=== PATIENT | male | born 1995 | race African-American/Black ===

== ENCOUNTER 2019-11-23 11:27 | Emergency (ER) | payer BC, SELFPAY ==
[2019-11-23 12:03] VITALS: BP 114/77; PULSE 80; RESP 16; TEMP 36.2; O2SAT 99
--- NOTE | 2019-11-23 12:25 | ED.MALEGU ---
HPI - Male Genitourinary General Chief complaint: Urogenital-Male Stated complaint: POSSIBLE UTI Time Seen by Provider: 11/23/19 12:11 Source: patient and RN notes reviewed Mode of arrival: ambulatory Limitations: no limitations History of Present Illness HPI Narrative: Presents today requesting STD testing. Reports a clear penile discharge since yesterday. Denies any dysuria, hematuria, abdominal pain, penile pain or swelling, testicular or scrotal pain or swelling. History of chlamydia x2 in the past. Last episode of unprotected vaginal intercourse was November 06. Patient also has unprotected anal intercourse. Female partners. Complaint: penile discharge Related Data Home Medications Medication Instructions Recorded Confirmed No Home Medications 11/23/19 11/23/19 Allergies Allergy/AdvReac Type Severity Reaction Status Date / Time No Known Allergies Allergy Verified 11/23/19 12:02 Review of Systems Review of Systems: Narrative: CONSTITUTIONAL: Denies body aches, fever, chills, or sweats. EYES: Denies visual changes, redness, or discharge. ENT: Denies rhinorrhea, congestion, sore throat, or otalgia. CARDIOVASCULAR: Denies chest pain, palpitations, or edema. RESPIRATORY: Denies cough or dyspnea. GASTROINTESTINAL: Denies abdominal pain, nausea, vomiting, or diarrhea. GENITOURINARY: Denies dysuria or hematuria. Penile discharge SKIN: Denies rash, itching, or wounds. MUSCULOSKELETAL: Denies back pain, joint pain, or myalgia. NEUROLOGIC: Denies headache, numbness, tingling, or weakness. PSYCH: Denies depression or anxiety. [facility] Past Medical History Medical History (Updated 11/23/19 @ 12:48 by Donna Trinidad, [facility], ) History of chlamydia Family History Family History (Updated 03/10/17 @ 09:17 by DOCTOR UNKNOWN) Mother Patient's mother is in good health Father Patient's father is in good health Sibling Patient's sister is in good health Patient's brother is in good health Social History Social History Smoking status: Former smoker Second hand tobacco smoke exposure: No Smoking end date: 06/23/17 Alcohol intake: current Substance use type: marijuana Comments At time of signature, I have reviewed and agree with nursing past medical, surgical, social and family history unless otherwise noted. Please see nursing chart for further information. There is no relevant family history pertinent to the presenting complaint Exam Narrative: Exam Narrative: GENERAL: Well-appearing, well-nourished, and in no acute distress. HEAD: Normocephalic, atraumatic. EYES: EOMI. No redness or drainage. Conjunctivae normal. ENT: Mucous membranes pink and moist. NECK: Normal AROM. CHEST: No respiratory distress. ABDOMEN: Soft, nontender, nondistended, normal active bowel sounds. : Scant clear penile discharge. No swelling to the penis. No wounds or lesions noted. No penile tenderness. No swelling, tenderness, erythema to the scrotum or testicles. Exam chaperoned by Nina Grady RN. MUSCULOSKELETAL: No bony tenderness. EXTREMITIES: Normal range of motion. No edema. SKIN: Warm, dry, no rash. Capillary refill normal. Normal skin turgor. NEURO: No focal deficits. Alert and oriented x3. Gait steady. PSYCH: Normal affect. No signs of depression or anxiety. Course Vital Signs Vital signs: Vital Signs Temperature 97.1 F L 11/23/19 12:03 Pulse Rate 80 11/23/19 12:03 Respiratory Rate 16 11/23/19 12:03 Blood Pressure 114/77 11/23/19 12:03 Pulse Oximetry 99 11/23/19 12:03 Temperature 97.1 F L 11/23/19 12:03 Pulse Rate 80 11/23/19 12:03 Respiratory Rate 16 11/23/19 12:03 Blood Pressure 114/77 11/23/19 12:03 Pulse Oximetry 99 11/23/19 12:03 Reviewed MDM - Male Genitourinary MDM Narrative Medical decision making narrative: Patient refuses Rocephin injection to cover for gonorrhea, as he does not want an injection in his buttocks. Had a lengthy discussio
[2019-11-23] MEDS: AZITHROMYCIN 250 MG TABLET 1000 MG PO (12:29)
== END 2019-11-23 12:54 | disposition home or self-care (01) ==
PROVIDERS: Emergency Provider Nurse Practitioner; PCP Internal Medicine
DX: Z11.3 Encounter for screening for infections with a predominantly sexual mode of transmission (principal); Z87.891 Personal history of nicotine dependence
CPT/HCPCS: 81003; 87491; 87591; 87661; 99203; A9270; G0463

== ENCOUNTER 2022-10-11 08:50 | Outpatient (CLI) | payer BC, SELFPAY ==
[2022-10-11 09:35] LABS: Basophils Percent Auto 0.5 % (0.2-1.2); Eosinophils Percent Auto 0.8 % (0-4.4); Hematocrit 47.4 % (42.0-52.0); Hemoglobin 15.4 g/dL (14.0-18.0); Immature Granulocyte Absolute 0.01 K/mm3 (0.00-0.031); Immature Granulocyte Percent A 0.3 % (0-0.5); Lymphocytes Absolute Auto 1.43 K/mm3 (0.9-3.2); Lymphocytes Percent Auto 38.6 % (18.3-44.2); Mean Corpuscular HGB Conc 32.5 g/dl (32-36); Mean Corpuscular Hemoglobin 31.4 pg (26-34); Mean Corpuscular Volume 96.5 fl (80-100); Monocytes Absolute Auto 0.2 K/mm3 (0.1-0.6); Monocytes Percent Auto 6.5 % (2.6-8.5); Neutrophils Percent Auto 53.3 % (45.5-73.1); Platelet Count Result 148 k/mm3 (150-375); Red Blood Count 4.91 M/mm3 (4.6-6.20); Red Cell Distribution Width 12.3 % (11.5-14.5); White Blood Count 3.7 K/mm3 (4.5-10.0)
[2022-10-11 09:44] LABS: Alanine Aminotransferase 29 U/L (6-50); Albumin Level 4.7 g/dL (3.5-5.1); Alkaline Phosphatase 55 U/L (38-126); Anion Gap 7 mmol/L (8-16); Aspartate Amino Transferase 33 U/L (17-59); Bilirubin,Total 0.8 mg/dL (0.2-1.3); Blood Urea Nitrogen 18 mg/dL (9-20); Calcium 8.9 mg/dL (8.4-10.2); Carbon Dioxide 30 mmol/L (22-30); Chloride 103 mmol/L (98-107); Cholesterol 121 mg/dL (0-200); Estimated Glomerular Filt Rate > 60; Glucose 115 mg/dL (65-110); HDL Direct 49 mg/dL; Sodium 140 mmol/L (137-145); Triglycerides 107 mg/dL (<150)
[2022-10-11 09:55] LABS: LDL Cholesterol Direct 34 mg/dL
[2022-10-11 10:11] LABS: Thyroid Stimulating Hormone 0.512 uIU/mL (0.465-4.680)
[2022-10-11 10:21] LABS: HIV 1/2 Ab P24 Ag Result Negative (Negative)
[2022-10-11 10:34] LABS: Hemoglobin A1C 4.4 % (<5.7)
== END 2022-10-11 08:51 | disposition home or self-care (01) ==
PROVIDERS: Internal Medicine; PCP Internal Medicine; Visit Provider Internal Medicine
DX: Z13.6 Encounter for screening for cardiovascular disorders (principal); Z13.220 Encounter for screening for lipoid disorders; Z13.1 Encounter for screening for diabetes mellitus; Z13.29 Encounter for screening for other suspected endocrine disorder; Z72.51 High risk heterosexual behavior
CPT/HCPCS: 36415; 80053; 80061; 83036; 84443; 85025; 86695; 86696; 86703; 87491; 87591; G0432

== ENCOUNTER 2022-10-18 11:30 | Outpatient (CLI) | payer BC, SELFPAY ==
--- NOTE | ~2022-10-18 | US_ITS ---
EXAMINATION: US scrotum doppler DATE: 10/18/2022 11:59 INDICATION: Left testicular pain TECHNIQUE: Testicular sonogram utilizing grayscale and Doppler COMPARISON: None. FINDINGS: The right testis measures 5.0 x 2.5 x 3.7 cm. The left testis measures 3.8 x 2.1 x 2.7 cm. There are anechoic foci in both kidneys measuring up to 3 mm, likely testicular cysts. No suspicious testicular mass is identified. There is normal vascular flow to both testes. The right epididymis is normal with normal vascular flow. The left epididymis is normal with normal vascular flow. There is n o varicocele or hydrocele. IMPRESSION: 1. No sonographic correlate for the patient's symptoms. Reviewed, dictated and finalized at location B.
== END 2022-10-18 11:31 ==
LOC: GOSHIMG 11:31
PROVIDERS: PCP Internal Medicine; Visit Provider Nurse Practitioner Family
DX: N50.812 Left testicular pain (principal)
CPT/HCPCS: 76870; 93976